=== PATIENT | male | born 1965 | race Caucasian/White ===

== ENCOUNTER 2017-09-17 15:54 | Emergency (ER) | payer OTHER ==
[~2017-09-17] VITALS: Ht 188 cm; Wt 95.0 kg
[~2017-09-17 15:54] MED LIST: PREDNISONE10 MG PO
[2017-09-17 17:35] VITALS: BP 135/76
== END 2017-09-17 17:43 | disposition home or self-care (01) | DRG 916 ==
LOC: ED 15:54
DX: T78.40XA Allergy, unspecified, initial encounter (principal); X58.XXXA Exposure to other specified factors, initial encounter